=== PATIENT | female | born 1975 | race Caucasian/White ===

== ENCOUNTER → 2017-10-02 | Outpatient (CLI) | payer BC ==
[~2017-10-02] MED LIST: BCP; CALC300T4 PO; HCT25T; LVT.088T; LVT.1T; OMEP20TA7 PO; PRM25T PO
[2017-10-02 13:23] LABS: BASOPHILS % (AUTO) 1 % (0-10); EOSINOPHILS # (AUTO) 0.1 10^3/uL (0.0-0.3); EOSINOPHILS % (AUTO) 2 % (0-10); HEMATOCRIT 27 % (35-52); HEMOGLOBIN 7.6 G/DL (11.5-16.0); LYMPHOCYTES # (AUTO) 1.4 X 10^3 (1.0-4.0); LYMPHOCYTES % (AUTO) 33 % (12-44); MEAN CORPUSCULAR HEMOGLOBIN 19 PG (25-34); MEAN CORPUSCULAR HGB CONC 28 G/DL (32-36); MEAN CORPUSCULAR VOLUME 69 FL (80-99); MEAN PLATELET VOLUME 9.9 FL (7.4-10.4); MONOCYTES # (AUTO) 0.8 X 10^3 (0.0-1.0); MONOCYTES % (AUTO) 18 % (0-12); NEUTROPHILS % (AUTO) 47 % (42-75); PLATELET COUNT 254 10^3/uL (130-400); RED BLOOD COUNT 3.96 10^6/uL (4.35-5.85); RED CELL DISTRIBUTION WIDTH 18.4 % (10.0-14.5); WHITE BLOOD COUNT 4.3 10^3/uL (4.3-11.0)
== END ==
LOC: LAB 12:59
PROVIDERS: ATTEND Family Medicine
DX: E03.9 Hypothyroidism, unspecified (principal); R53.83 Other fatigue
CPT/HCPCS: 36415; 82306; 84443; 85025

== ENCOUNTER 2017-10-03 08:24 | Emergency (ER) | payer BC ==
[2017-10-03] VITALS (10 sets, daily range): BP systolic 103–122; BP diastolic 60–96
[~2017-10-03] VITALS: Ht 160 cm; Wt 63.5 kg
[~2017-10-03 08:24] MED LIST changes: -CALC300T4 PO; -NS IV 1000 ML 1,000 ML ONE; -OMEP20TA7 PO
--- OUTSIDE RECORDS SUMMARY | 2017-10-03 08:29 | XMS REPORT | Continuity of Care Document ---
Author Author [facility] Organization [facility] Address Unknown Phone Unavailable Allergies Active Description Code Type Severity Reaction Onset Reported/Identified Relationship to Patient Clinical Status Yes No Known Drug Allergies [id number] Drug Allergy Unknown N/A 07/24/2007 Medications There is no data. Problems Date Dx Coded Attending Type Code Diagnosis Diagnosed By 01/04/2010 Ot 244.9 HYPOTHYROIDISM NOS 01/04/2010 Ot 256.4 POLYCYSTIC OVARIES 01/04/2010 Ot 272.0 PURE HYPERCHOLESTEROLEM 01/04/2010 Ot 278.01 MORBID OBESITY 01/04/2010 Ot 305.1 TOBACCO USE DISORDER 01/04/2010 Ot V58.69 OTH MED,LT, CURRENT USE 01/04/2010 Ot V85.4 BODY MASS INDEX 40 AND OVER, ADULT 01/21/2014 DARIA MILLIGAN, STEFANO Strickland Ot V57.1 PHYSICAL THERAPY NEC 01/21/2014 STEFANO HUFF MD Ot V58.78 AFTERCARE POST SURGERY MUSCULOSKELETAL S 02/22/2016 Ot 244.9 HYPOTHYROIDISM NOS 02/22/2016 Ot V70.0 ROUTINE MEDICAL EXAM 02/22/2016 Ot 244.9 HYPOTHYROIDISM NOS 02/22/2016 Ot V15.29 PERSONAL HISTORY OF SURGERY TO OTHER ORG 02/22/2016 Ot V70.0 ROUTINE MEDICAL EXAM 02/22/2016 Ot 244.9 HYPOTHYROIDISM NOS 02/22/2016 Ot 793.89 OTH (ABN) FINDINGS ON RADIOLOGICAL EXAMI 02/22/2016 KIERA MILLIGAN, FRANKLIN Smith Ot 724.02 SPINAL STENOSIS, LUMBAR REG, W/OUT NEURO 02/22/2016 DARIA MILLIGAN, STEFANO Strickland Ot 722.10 LUMBAR DISC DISPLACEMENT 02/22/2016 STEFANO HUFF MD Ot V72.63 PRE-PROCEDURAL LABORATORY EXAMINATION 02/28/2016 FRANKLIN QURESHI MD Ot E03.9 HYPOTHYROIDISM, UNSPECIFIED 03/28/2016 FRANKLIN QURESHI MD Ot E03.9 HYPOTHYROIDISM, UNSPECIFIED 05/29/2016 Ot 244.9 HYPOTHYROIDISM NOS 05/29/2016 Ot V70.0 ROUTINE MEDICAL EXAM 05/29/2016 Ot 244.9 HYPOTHYROIDISM NOS 05/29/2016 Ot V15.29 PERSONAL HISTORY OF SURGERY TO OTHER ORG 05/29/2016 Ot V70.0 ROUTINE MEDICAL EXAM 05/29/2016 Ot 244.9 HYPOTHYROIDISM NOS 05/29/2016 Ot 793.89 OTH (ABN) FINDINGS ON RADIOLOGICAL EXAMI 05/29/2016 KIERA MILLIGAN, FRANKLIN Smith Ot 724.02 SPINAL STENOSIS, LUMBAR REG, W/OUT NEURO 05/29/2016 STEFANO HUFF MD Ot 722.10 LUMBAR DISC DISPLACEMENT 05/29/2016 STEFANO HUFF MD Ot V72.63 PRE-PROCEDURAL LABORATORY EXAMINATION 05/29/2016 KIERA MILLIGAN, FRANKLIN Smith Ot E03.9 HYPOTHYROIDISM, UNSPECIFIED 06/18/2016 Ot 244.9 HYPOTHYROIDISM NOS 06/18/2016 Ot V70.0 ROUTINE MEDICAL EXAM 06/18/2016 Ot 244.9 HYPOTHYROIDISM NOS 06/18/2016 Ot V15.29 PERSONAL HISTORY OF SURGERY TO OTHER ORG 06/18/2016 Ot V70.0 ROUTINE MEDICAL EXAM 06/18/2016 Ot 244.9 HYPOTHYROIDISM NOS 06/18/2016 Ot 793.89 OTH (ABN) FINDINGS ON RADIOLOGICAL EXAMI 06/18/2016 FRANKLIN QURESHI MD Ot 724.02 SPINAL STENOSIS, LUMBAR REG, W/OUT NEURO 06/18/2016 STEFANO HUFF MD Ot 722.10 LUMBAR DISC DISPLACEMENT 06/18/2016 STEFANO HUFF MD Ot V72.63 PRE-PROCEDURAL LABORATORY EXAMINATION 06/18/2016 FRANKLIN QURESHI MD Ot E03.9 HYPOTHYROIDISM, UNSPECIFIED 10/18/2016 Ot 244.9 HYPOTHYROIDISM NOS 10/18/2016 Ot V15.29 PERSONAL HISTORY OF SURGERY TO OTHER ORG 10/18/2016 Ot V70.0 ROUTINE MEDICAL EXAM 10/18/2016 Ot 244.9 HYPOTHYROIDISM NOS 10/18/2016 Ot 793.89 OTH (ABN) FINDINGS ON RADIOLOGICAL EXAMI 10/18/2016 FRANKLIN QURESHI MD Ot 724.02 SPINAL STENOSIS, LUMBAR REG, W/OUT NEURO 10/18/2016 STEFANO HUFF MD Ot 722.10 LUMBAR DISC DISPLACEMENT 10/18/2016 STEFANO HUFF MD Ot V72.63 PRE-PROCEDURAL LABORATORY EXAMINATION 10/18/2016 FRANKLIN QURESHI MD Ot E03.9 HYPOTHYROIDISM, UNSPECIFIED 10/18/2016 Ot 244.9 HYPOTHYROIDISM NOS 10/18/2016 Ot V15.29 PERSONAL HISTORY OF SURGERY TO OTHER ORG 10/18/2016 Ot V70.0 ROUTINE MEDICAL EXAM 10/18/2016 Ot 244.9 HYPOTHYROIDISM NOS 10/18/2016 Ot 793.89 OTH (ABN) FINDINGS ON RADIOLOGICAL EXAMI 10/18/2016 KIERA MILLIGAN, FRANKLIN Smith Ot 724.02 SPINAL STENOSIS, LUMBAR REG, W/OUT NEURO 10/18/2016 STEFANO HUFF MD Ot 722.10 LUMBAR DISC DISPLACEMENT 10/18/2016 STEFANO HUFF MD Ot V72.63 PRE-PROCEDURAL LABORATORY EXAMINATION 10/18/2016 FRANKLIN QURESHI MD Ot E03.9 HYPOTHYROIDISM, UNSPECIFIED 03/27/2017 Ot 244.9 HYPOTHYROIDISM NOS 03/27/2017 Ot V15.29 PERSONAL HISTORY OF SURGERY TO OTHER ORG 03/27/2017 Ot V70.0 ROUTINE MEDICAL EXAM 03/27/2017 Ot 244.9 HYPOTHYROIDISM NOS 03/27/2017 Ot 793.89 OTH (ABN) FINDINGS ON RADIOLOGICAL EXAMI 03/27/2017 FRANKLIN QURESHI MD Ot 724.02 SPINAL STENOSIS, LUMBAR REG, W/OUT NEURO 03/27/2017 STEFANO HUFF MD Ot 722.10 LUMBAR DISC DISPLACEMENT 03/27/2017 STEFANO HUFF MD Ot V72.63 PRE-PROCEDURAL LABORATORY EXAMINATION 03/27/2017 FRANKLIN QURESHI MD Ot E03.9 HYPOTHYROIDISM, UNSPECIFIED 10/02/2017 Ot 244.9 HYPOTHYROIDISM NOS 10/02/2017 Ot V15.29 PERSONAL HISTORY OF SURGERY TO OTHER ORG 10/02/2017 Ot V70.0 ROUTINE MEDICAL EXAM 10/02/2017 Ot 244.9 HYPOTHYROIDISM NOS 10/02/2017 Ot 793.89 OTH (ABN) FINDINGS ON RADIOLOGICAL EXAMI 10/02/2017 FRANKLIN QURESHI MD Ot 724.02 SPINAL STENOSIS, LUMBAR REG, W/OUT NEURO 10/02/2017 STEFANO HUFF MD Ot 722.10 LUMBAR DISC DISPLACEMENT 10/02/2017 STEFANO HUFF MD Ot V72.63 PRE-PROCEDURAL LABORATORY EXAMINATION 10/02/2017 FRANKLIN QURESHI MD Ot E03.9 HYPOTHYROIDISM, UNSPECIFIED Procedures There is no data. Results Test Result Range Complete blood count (CBC) with automated white blood cell (WBC) differential - 10/02/17 13:18 Blood leukocytes automated count (number/volume) 4.3 10*3/uL 4.3-11.0 Blood erythrocytes automated count (number/volume) 3.96 10*6/uL 4.35-5.85 Venous blood hemoglobin measurement (mass/volume) 7.6 g/dL 11.5-16.0 Blood hematocrit (volume fraction) 27 % 35-52 Automated erythrocyte mean corpuscular volume 69 [foz_us] 80-99 Automated erythrocyte mean corpuscular hemoglobin (mass per erythrocyte) 19 pg 25-34 Automated erythrocyte mean corpuscular hemoglobin concentration measurement ( mass/volume) 28 g/dL 32-36 Automated erythrocyte distribution width ratio 18.4 % 10.0-14.5 Automated blood platelet count (count/volume) 254 10*3/uL 130-400 Automated blood platelet mean volume measurement 9.9 [foz_us] 7.4-10.4 Automated blood neutrophils/100 leukocytes 47 % 42-75 Automated blood lymphocytes/100 leukocytes 33 % 12-44 Blood monocytes/100 leukocytes 18 % 0-12 Automated blood eosinophils/100 leukocytes 2 % 0-10 Automated blood basophils/100 leukocytes 1 % 0-10 Blood neutrophils automated count (number/volume) 2.0 10*3 1.8-7.8 Blood lymphocytes automated count (number/volume) 1.4 10*3 1.0-4.0 Blood monocytes automated count (number/volume) 0.8 10*3 0.0-1.0 Automated eosinophil count 0.1 10*3/uL 0.0-0.3 Automated blood basophil count (count/volume) 0.0 10*3/uL 0.0-0.1 Serum or plasma thyrotropin measurement by detection limit <=0.05 miu/l (units/ volume) - 10/02/17 13:18 Serum or plasma thyrotropin measurement by detection limit <=0.05 miu/l (units/ volume) 0.37 u[iU]/mL 0.35-4.94 25-hydroxyvitamin D measurement - 10/02/17 13:18 25-hydroxy vitamin D measurement 25 % 30-100 Encounters ACCT No. Visit Date/Time Discharge Status Pt. Type Provider Facility Loc./Unit Complaint [id number] 02/22/2016 09:20:00 02/22/2016 23:59:59 CLS Outpatient FRANKLIN QURESHI MD [facility] LAB HYPOTHYROID [id number] 03/09/2015 08:58:00 03/09/2015 23:59:59 CLS Outpatient ROLA SUAREZ APRN [facility] QUICK [id number] 01/05/2014 15:00:00 01/21/2014 12:28:00 DIS Outpatient STEFANO HUFF MD [facility] REHAB R L4-5 MICRODISCECTOMY [id number] 01/11/2014 13:52:00 01/11/2014 23:59:59 CLS Outpatient [id number] 11/10/2013 08:50:00 11/10/2013 23:59:59 CLS Outpatient STEFANO HUFF MD [facility] LAB PRE OP HNP LBP RADICULITIS [id number] 10/14/2013 15:03:00 10/14/2013 23:59:59 CLS Outpatient FRANKLIN QURESHI MD [facility] RAD LUMBAR LOW BACK PAIN [id number] 10/02/2017 12:59:00 ACT Outpatient TIMI CHAPPELL MD [facility] LAB E03.8 R53.83 [id number] 12/15/2012 10:50:00 Document Registration [id number] 11/09/2012 15:15:00 Document Registration [id number] 05/05/2012 08:07:00 Document Registration [id number] 02/21/2011 08:16:00 Document Registration [id number] 01/03/2010 05:42:00 Document Registration
[2017-10-03] MEDS ORDERED: CALC300T4 PO (08:49)
[2017-10-03] MEDS ORDERED: OMEP20TA7 PO (08:49)
[2017-10-03 09:39] LABS: BASOPHILS % (AUTO) 1 % (0-10); EOSINOPHILS # (AUTO) 0.1 10^3/uL (0.0-0.3); EOSINOPHILS % (AUTO) 3 % (0-10); HEMATOCRIT 26 % (35-52); HEMOGLOBIN 7.2 G/DL (11.5-16.0); LYMPHOCYTES # (AUTO) 1.1 X 10^3 (1.0-4.0); LYMPHOCYTES % (AUTO) 28 % (12-44); MEAN CORPUSCULAR HEMOGLOBIN 19 PG (25-34); MEAN CORPUSCULAR HGB CONC 28 G/DL (32-36); MEAN CORPUSCULAR VOLUME 68 FL (80-99); MEAN PLATELET VOLUME 10.8 FL (7.4-10.4); MONOCYTES # (AUTO) 0.6 X 10^3 (0.0-1.0); MONOCYTES % (AUTO) 16 % (0-12); NEUTROPHILS % (AUTO) 53 % (42-75); PLATELET COUNT 225 10^3/uL (130-400); RED BLOOD COUNT 3.75 10^6/uL (4.35-5.85); RED CELL DISTRIBUTION WIDTH 18.3 % (10.0-14.5); WHITE BLOOD COUNT 3.8 10^3/uL (4.3-11.0)
[2017-10-03] MEDS ORDERED: NS IV 1000 ML 1,000 ML IV SCH (09:45)
--- NOTE | 2017-10-03 10:30 | ED General ---
General Chief Complaint: Dizziness/Syncope Stated Complaint: DIZZY,WEAK,SOA Nursing Triage Note: ARRIVED VIA AMB WITH DAD. STATES SHE IS FEELING VERY WEAK AND DIZZY. HAD BLOOD DRAWN YESTERDAY AND HER HMG WAS 7. STATES SHE HAS HAD A COUGH AND FEELS SOA. Nursing Sepsis Screen: No Definite Risk Source of Information: Patient Exam Limitations: No Limitations History of Present Illness Date Seen by Provider: Oct 03, 2017 Time Seen by Provider: 10:25 Initial Comments The patient is a 41-year-old white female known to me for some years. She saw Dr. Eliezer Zhang yesterday and blood work was done which showed that she had a hemoglobin of 7.6. He was to arrange some outpatient infusions today but she presented here with complaints of feeling weak and woozy and as if she were about to pass out. She reports no past history of anemia. She states her menstrual periods have been normal until the past month and this month she has had some limited spotting. There has been no hematochezia melena or hematemesis Severity: Mild, Moderate Allergies and Home Medications Allergies Coded Allergies: No Known Drug Allergies (Verified Allergy, Unknown, 07/24/07) Home Medications Calcium Carbonate 300 Mg Tab.chew, 300 MG PO, (Reported) Levothyroxine Sodium 100 Mcg Tablet, (Reported) Omeprazole 20 Mg Tablet.dr, 20 MG PO, (Reported) Constitutional: see HPI EENTM: no symptoms reported Respiratory: no symptoms reported Cardiovascular: no symptoms reported Musculoskeletal: muscle weakness Skin: no symptoms reported Psychiatric/Neurological: No Symptoms Reported Hematologic/Lymphatic: No Symptoms Reported Immunological/Allergic: no symptoms reported Past Tlbhper-Dstwbe-Gutcdw Hx Patient Social History Alcohol Use: Denies Use Recreational Drug Use: No Smoking Status: Current Everyday Smoker Recent Foreign Travel: No Contact w/Someone Who Travel: No Recent Infectious Disease Expo: No Recent Hopitalizations: Yes Surgeries History of Surgeries: Yes (GASTRIC SLEEVE) Respiratory History of Respiratory Disorde: No Cardiovascular History of Cardiac Disorders: No Neurological History of Neurological Disord: No Reproductive System Hx Reproductive Disorders: Yes (PCOS) Sexually Transmitted Disease: No Genitourinary History of Genitourinary Disor: No Gastrointestinal History of Gastrointestinal Di: Yes Gastrointestinal Disorders: Gastroesophageal Reflux Musculoskeletal History of Musculoskeletal Dis: No Endocrine History of Endocrine Disorders: Yes Endocrine Disorders: Hypothyroidsim HEENT History of HEENT Disorders: No Cancer History of Cancer: No Psychosocial History of Psychiatric Problem: No Blood Transfusions History of Blood Disorders: No Physical Exam Vital Signs Vital Sign - Last 12Hours 10/03/17 08:25 Temp 96.9 Pulse 79 Resp 18 B/P (MAP) 131/93 (106) Pulse Ox 100 Capillary Refill : Less Than 3 Seconds General Appearance: Mild Distress Eyes: Bilateral Eye Normal Inspection HEENT: Normal ENT Inspection Neck: Normal Inspection Respiratory: Chest Non Tender, Lungs Clear, Normal Breath Sounds, No Accessory Muscle Use, No Respiratory Distress Cardiovascular: Regular Rate, Rhythm Gastrointestinal: Normal Bowel Sounds, No Organomegaly, No Pulsatile Mass, Non Tender, Soft Progress/Results/Core Measures Suspected Sepsis Recent Fever Within 48 Hours: No Infection Criteria Present: None New/Unexplained Altered Menta: No Sepsis Screen: No Definite Risk Sepsis Diagnosis: SIRS Temperature:96.9 Pulse: 79 Respiratory Rate: 18 Laboratory Tests 10/03/17 08:38: White Blood Count 3.8L Blood Pressure 131 /93 Mean: 106 Laboratory Tests 10/03/17 08:38: Platelet Count 225 Results/Orders Lab Results Laboratory Tests Test 10/03/17 08:38 Range/Units White Blood Count 3.8 L 4.3-11.0 10^3/uL Red Blood Count 3.75 L 4.35-5.85 10^6/uL Hemoglobin 7.2 L 11.5-16.0 G/DL Hematocrit 26 L 35-52 % Mean Corpuscular Volume 68 L 80-99 FL Mean Corpuscular Hemoglobin 19 L 25-34 PG Mean Corpuscular Hemoglobin Concent 28 L 32-36 G/DL Red Cell Distribution Width 18.3 H 10.0-14.5 % Platelet Count 225 130-400 10^3/uL Mean Platelet Volume 10.8 H 7.4-10.4 FL Neutrophils (%) (Auto) 53 42-75 % Lymphocytes (%) (Auto) 28 12-44 % Monocytes (%) (Auto) 16 H 0-12 % Eosinophils (%) (Auto) 3 0-10 % Basophils (%) (Auto) 1 0-10 % Neutrophils # (Auto) 2.0 1.8-7.8 X 10^3 Lymphocytes # (Auto) 1.1 1.0-4.0 X 10^3 Monocytes # (Auto) 0.6 0.0-1.0 X 10^3 Eosinophils # (Auto) 0.1 0.0-0.3 10^3/uL Basophils # (Auto) 0.0 0.0-0.1 10^3/uL My Orders Orders - FLAQUITO DUGAN MD Red Cells Leukocytes Reduced (10/03/17 08:53) Type And Screen (10/03/17 08:53) Ns Iv 1000 Ml (Sodium Chloride 0.9%) (10/03/17 09:45) Cbc With Automated Diff (10/03/17 09:34) Anemia Analyzer (10/03/17 10:21) Vital Signs/I&O Vital Sign - Last 12Hours 10/03/17 08:25 Temp 96.9 Pulse 79 Resp 18 B/P (MAP) 131/93 (106) Pulse Ox 100 Capillary Refill : Less Than 3 Seconds Blood Pressure Mean: 106 Departure Impression Impression: Primary Impression: symptomatic anemia Disposition: 01 HOME, SELF-CARE Condition: Stable/Unchanged Departure-Patient Inst. Decision time for Depature: 10:29 Referrals: ELIEZER ZHANG MD (PCP/Family) Primary Care Physician Add. Discharge Instructions: All discharge instructions reviewed with patient and/or family. Voiced understanding. Present to healthcare administration intern for 2 units of packed red blood cells. I have spoken to Dr. Eliezer Zhang and he will expect to for a blood counts early next week and to arrange any necessary additional workup FLAQUITO DUGAN MD Oct 03, 2017 10:30
[2017-10-03 10:50] LABS: HEMATOCRIT 26 % (35-52); HEMOGLOBIN 7.2 G/DL (11.5-16.0); MEAN CORPUSCULAR HEMOGLOBIN 19 PG (25-34); MEAN CORPUSCULAR VOLUME 68 FL (80-99); RED BLOOD COUNT 3.75 10^6/uL (4.35-5.85); WHITE BLOOD COUNT 3.8 10^3/uL (4.3-11.0)
[2017-10-03 10:51] LABS: BASOPHILS % (AUTO) 1 % (0-10); EOSINOPHILS # (AUTO) 0.1 10^3/uL (0.0-0.3); EOSINOPHILS % (AUTO) 3 % (0-10); LYMPHOCYTES # (AUTO) 1.1 X 10^3 (1.0-4.0); LYMPHOCYTES % (AUTO) 28 % (12-44); MEAN CORPUSCULAR HGB CONC 28 G/DL (32-36); MEAN PLATELET VOLUME 10.8 FL (7.4-10.4); MONOCYTES # (AUTO) 0.6 X 10^3 (0.0-1.0); MONOCYTES % (AUTO) 16 % (0-12); NEUTROPHILS % (AUTO) 53 % (42-75); PLATELET COUNT 225 10^3/uL (130-400); RED CELL DISTRIBUTION WIDTH 18.3 % (10.0-14.5)
[2017-10-03 10:54] LABS: ABSOLUTE RETIC # 22 10e9/L (24-90); RETICULOCYTE % 0.58 % (0.50-2.40)
[2017-10-03 11:49] LABS: ANISOCYTOSIS SLIGHT; EOSINOPHILS % (MANUAL) 3 %; HYPOCHROMASIA MODERATE; LYMPHOCYTES % (MANUAL) 37 %; MICROCYTOSIS MODERATE; MONOCYTES % (MANUAL) 14 %; NEUTROPHILS % (MANUAL) 46 %; POIKILOCYTOSIS SLIGHT; ROULEAUX SLIGHT
== END 2017-10-03 10:45 | disposition home or self-care (01) ==
LOC: EDUNIT# 08:24 → ER 08:26
DX: D64.9 Anemia, unspecified (principal); K21.9 Gastro-esophageal reflux disease without esophagitis; F17.200 Nicotine dependence, unspecified, uncomplicated; E03.9 Hypothyroidism, unspecified; Z98.84 Bariatric surgery status
CPT/HCPCS: 36415; 82728; 85007; 85025; 85027; 85045; 86850; 86900; 86901; 86920; 96360

== ENCOUNTER → 2017-10-03 | Outpatient (CLI) | payer BC ==
[~2017-10-03] VITALS: Ht 160 cm; Wt 63.5 kg
[~2017-10-03] MED LIST changes: +NS IV 1000 ML 1,000 ML ONE
[2017-10-03 11:29] VITALS: BP 127/55
[2017-10-03 13:52] LABS: HEMOGLOBIN 8.2 G/DL (11.5-16.0)
[2017-10-03 16:02] LABS: HEMOGLOBIN 9.8 G/DL (11.5-16.0)
--- NOTE | 2017-10-06 14:03 | Physician Query-Final Dx ---
Clinic Account Progress/Dx Physician Query: Please give a diagnosis for the patients blood transfusion thank you Date of Service Oct 03, 2017 at 11:02 JOSE NAVARRO Oct 06, 2017 14:03
--- NOTE | 2017-10-22 14:24 | Short Stay Summary-Hospitalist ---
Short Stay Diagnosis D/C Date Symptomatic anemia etiology unknown FLAQUITO DUGAN MD Oct 22, 2017 14:24
== END ==
LOC: SDC 11:02
PROVIDERS: ATTEND Internal Medicine
DX: D64.9 Anemia, unspecified (principal)
CPT/HCPCS: 36415; 36430; 85014; 85018

== ENCOUNTER → 2017-11-11 | Outpatient (CLI) | payer BC ==
[~2017-11-11] MED LIST changes: +CALC300T4 PO; +OMEP20TA7 PO
[2017-11-11 13:12] LABS: BASOPHILS # (AUTO) 0.1 10^3/uL (0.0-0.1); BASOPHILS % (AUTO) 1 % (0-10); EOSINOPHILS # (AUTO) 0.3 10^3/uL (0.0-0.3); EOSINOPHILS % (AUTO) 3 % (0-10); HEMATOCRIT 34 % (35-52); HEMOGLOBIN 10.6 G/DL (11.5-16.0); LYMPHOCYTES % (AUTO) 20 % (12-44); MEAN CORPUSCULAR HEMOGLOBIN 24 PG (25-34); MEAN CORPUSCULAR HGB CONC 31 G/DL (32-36); MEAN CORPUSCULAR VOLUME 77 FL (80-99); MEAN PLATELET VOLUME 10.7 FL (7.4-10.4); MONOCYTES % (AUTO) 10 % (0-12); NEUTROPHILS # (AUTO) 6.4 X 10^3 (1.8-7.8); NEUTROPHILS % (AUTO) 66 % (42-75); PLATELET COUNT 295 10^3/uL (130-400); RED BLOOD COUNT 4.43 10^6/uL (4.35-5.85); RED CELL DISTRIBUTION WIDTH 22.8 % (10.0-14.5); WHITE BLOOD COUNT 9.7 10^3/uL (4.3-11.0)
== END ==
LOC: LAB 12:57
PROVIDERS: ATTEND Family Medicine
DX: D50.9 Iron deficiency anemia, unspecified (principal)
CPT/HCPCS: 36415; 85025

== ENCOUNTER → 2017-12-23 | Outpatient (CLI) | payer BC ==
--- NOTE | 2017-12-23 13:00 | Diagnostic Imaging Report ---
INDICATION: Routine screening. Comparison is made with prior study from 12/15/2012. The current study was also evaluated with a Computer Aided Detection (CAD) system. FINDINGS: Both breasts are heterogeneously dense, limiting the sensitivity of mammography. There are benign calcifications bilaterally. There is a focal density in the left breast mid depth just lateral to the nipple line. No corresponding density on the MLO view is seen. Axillae are unremarkable. IMPRESSION: Left breast density. Additional views including spot compression and rolled CC views are recommended for further evaluation. ACR BI-RADS Category 0: Incomplete. (Needs additional imaging evaluation). Result letter will be mailed to the patient. Note: At least 10% of breast cancer is not imaged by mammography. Dictated by: Dictated on workstation # [id number]
== END ==
LOC: RAD 08:27
PROVIDERS: ATTEND Obstetrics & Gynecology
DX: Z12.31 Encounter for screening mammogram for malignant neoplasm of breast (principal)
CPT/HCPCS: 77067

== ENCOUNTER → 2018-02-20 | Outpatient (CLI) | payer BC ==
[2018-02-20 15:33] LABS: BASOPHILS # (AUTO) 0.1 10^3/uL (0.0-0.1); BASOPHILS % (AUTO) 1 % (0-10); EOSINOPHILS # (AUTO) 0.3 10^3/uL (0.0-0.3); EOSINOPHILS % (AUTO) 3 % (0-10); HEMATOCRIT 33 % (35-52); HEMOGLOBIN 10.3 G/DL (11.5-16.0); LYMPHOCYTES % (AUTO) 23 % (12-44); MEAN CORPUSCULAR HEMOGLOBIN 24 PG (25-34); MEAN CORPUSCULAR HGB CONC 31 G/DL (32-36); MEAN CORPUSCULAR VOLUME 78 FL (80-99); MONOCYTES # (AUTO) 0.9 X 10^3 (0.0-1.0); MONOCYTES % (AUTO) 10 % (0-12); NEUTROPHILS # (AUTO) 5.6 X 10^3 (1.8-7.8); NEUTROPHILS % (AUTO) 63 % (42-75); PLATELET COUNT 343 10^3/uL (130-400); RED BLOOD COUNT 4.24 10^6/uL (4.35-5.85); RED CELL DISTRIBUTION WIDTH 16.3 % (10.0-14.5); WHITE BLOOD COUNT 8.9 10^3/uL (4.3-11.0)
== END ==
LOC: LAB 15:11
PROVIDERS: ATTEND Family Medicine
DX: D50.9 Iron deficiency anemia, unspecified (principal)
CPT/HCPCS: 36415; 83540; 85025

== ENCOUNTER → 2018-03-04 | Outpatient (CLI) | payer BC ==
[~2018-03-04] VITALS: Ht 160 cm; Wt 63.5 kg
[~2018-03-04] MED LIST changes: +IRON SUCROSE 200 MG/10 ML (VENOFER) VIAL IV NR
[2018-03-04 13:33] VITALS: BP 109/67
== END ==
LOC: SDC 12:55
PROVIDERS: ATTEND Family Medicine
DX: D50.9 Iron deficiency anemia, unspecified (principal)
CPT/HCPCS: 96365

== ENCOUNTER 2018-03-19 08:26 | Outpatient (CLI) | payer BC ==
[~2018-03-19] VITALS: Ht 160 cm; Wt 65.8 kg
[~2018-03-19 08:26] MED LIST changes: -IRON SUCROSE 200 MG/10 ML (VENOFER) VIAL IV NR
[2018-03-19] MEDS ORDERED: LEVO100T7 PO (12:54)
[2018-03-20] MEDS ORDERED: DOCU100C37 PO (12:57)
[2018-03-20] MEDS ORDERED: OXYC-471 PO (12:57)
[2018-03-20] MEDS ORDERED: IBUP-1780 PO (12:57)
== END 2018-03-19 13:08 ==
LOC: PREOP 08:26
PROVIDERS: ATTEND Obstetrics & Gynecology
DX: Z01.818 Encounter for other preprocedural examination (principal)

== ENCOUNTER 2018-03-20 12:25 | Day surgery (SDC) | payer BC, OTHER ==
[~2018-03-20] VITALS: Ht 160 cm; Wt 65.8 kg
[~2018-03-20 12:25] MED LIST changes: +BUP/EPI 0.5% 1:200,000 (SENSORCAINE) 30 ML VIAL ONE; +LEVO100T7 PO
[2018-03-20 12:30] VITALS: BP 126/73
[2018-03-20] MEDS ORDERED: ONDANSETRON 4 MG/2 ML (SDV) Z0FRAN ONE ×2 (12:34→12:52)
[2018-03-20] MEDS ORDERED: SCOPOLAMINE 1.5 MG (TRANSDERM-SCOP) PATCH ONE (12:34)
[2018-03-20] MEDS ORDERED: FAMOTIDINE 20MG/2ML IV (PEPCID) ONE (12:36)
[2018-03-20] MEDS: LACTATED RINGERS 1,000 ML IV PRN ×2 (12:40→13:57)
[2018-03-20] MEDS ORDERED: SEVOFLURANE (ULTANE) 15 ML INHAL SOLN ONE ×4 (12:43→14:36)
[2018-03-20] MEDS ORDERED: LACTATED RINGERS 1,000 ML IV ONE (12:43)
[2018-03-20] MEDS ORDERED: LIDOCAINE PF 2% 5 ML (XYLOCAINE) VIAL ONE (12:43)
[2018-03-20] MEDS ORDERED: proPOfol 200 MG/20 ML (DIPRIVAN) VIAL IV ONE (12:43)
[2018-03-20] MEDS ORDERED: MIDAZOLAM 2 MG/2 ML (VERSED) VIAL ONE (12:44)
[2018-03-20] MEDS ORDERED: fentaNYL INJECTION 100 MCG/2 ML AMP ONE ×2 (12:44→14:33)
[2018-03-20] MEDS ORDERED: ceFAZolin INJECTION 1,000 MG in NS (IVPB) 50 ML IV ONE (12:45)
[2018-03-20] MEDS ORDERED: SCOPOLAMINE 1.5 MG (TRANSDERM-SCOP) PATCH TOP ONE (12:45)
[2018-03-20] MEDS ORDERED: ONDANSETRON 4 MG/2 ML (SDV) Z0FRAN IV ONE (12:45)
[2018-03-20] MEDS ORDERED: FAMOTIDINE 20MG/2ML IV (PEPCID) IV ONE (12:45)
--- NOTE | 2018-03-20 12:50 | Progress Note-Pre Operative ---
Pre-Operative Progress Note H&P Reviewed The H&P was reviewed, patient examined and no changes noted. Date Seen by Provider: Mar 20, 2018 Time Seen by Provider: 12:50 Date H&P Reviewed: Mar 20, 2018 Time H&P Reviewed: 12:50 Pre-Operative Diagnosis: Dysfunctional uterine bleeding/menorrhagia JESUS REGALADO MD Mar 20, 2018 12:50 pm
--- NOTE | 2018-03-20 12:51 | Progress Note-Post Operative ---
Post-Operative Progess Note Surgeon (s)/Electronic Tech (s) Surgeon JESUS REGALADO MD Electronic Tech: Katey Osorio Pre-Operative Diagnosis Dysfunctional uterine bleeding/menorrhagia Post-Operative Diagnosis Same with pathology pending Procedure & Operative Findings Date of Procedure 03/20/18 Procedure Performed/Findings Total laparoscopic hysterectomy with bilateral salpingectomy Anesthesia Type GETA Estimated Blood Loss Estimated blood loss (mL): Minimal Specimens/Packing Specimens Removed Uterus and fallopian tubes Packing: None JESUS REGALADO MD Mar 20, 2018 12:51
[2018-03-20] MEDS ORDERED: DEXAMETHASONE 10 MG/ML (DECADRON) 1 ML VIAL ONE (12:52)
[2018-03-20 12:56] LABS: BASOPHILS # (AUTO) 0.1 10^3/uL (0.0-0.1); BASOPHILS % (AUTO) 1 % (0-10); EOSINOPHILS # (AUTO) 0.2 10^3/uL (0.0-0.3); EOSINOPHILS % (AUTO) 2 % (0-10); HEMATOCRIT 40 % (35-52); HEMOGLOBIN 12.4 G/DL (11.5-16.0); LYMPHOCYTES # (AUTO) 1.6 X 10^3 (1.0-4.0); LYMPHOCYTES % (AUTO) 25 % (12-44); MEAN CORPUSCULAR HEMOGLOBIN 25 PG (25-34); MEAN CORPUSCULAR HGB CONC 31 G/DL (32-36); MEAN CORPUSCULAR VOLUME 79 FL (80-99); MEAN PLATELET VOLUME 11.5 FL (7.4-10.4); MONOCYTES # (AUTO) 0.7 X 10^3 (0.0-1.0); MONOCYTES % (AUTO) 10 % (0-12); NEUTROPHILS % (AUTO) 62 % (42-75); PLATELET COUNT 296 10^3/uL (130-400); RED BLOOD COUNT 5.01 10^6/uL (4.35-5.85); RED CELL DISTRIBUTION WIDTH 19.7 % (10.0-14.5); WHITE BLOOD COUNT 6.5 10^3/uL (4.3-11.0)
--- NOTE | 2018-03-20 12:56 | Discharge Instructions ---
Discharge Instructions Discharge Medications New, Converted or Re-Newed RX: RX on Chart Patient Instructions Patient Instructions: As directed Return to The Hospital For: As directed Activity & Diet Discharge Diet: No Restrictions Activity as Tolerated: No Orders-Post D/C & Referrals Follow Up Appt: Return to clinic on Friday, March 23, 2018 at 930 a.m. for staple removal Call to make follow up appt. for patient in 4 weeks. Activity: Rest for 24 hours, than as tolerated. Wound Care: May remove Band-Aid tomorrow. Replace as desired. Keep incisions clean and dry. Wash daily with soap and water. Please call in RX to patient pharmacy. Diet: As tolerated-Clear Liquids only if nauseated. Tomorrow, may shower or tub bathe as desired. No driving for 24 hours, no alcoholic beverages for 24 hours, and nothing per vagina (no tampons, douching, or intercourse) for 8 weeks. Patient to return to the clinic as soon as possible for: Temperature greater than 101F, Severe Pain, Foul discharge from incision or vagina, Excessive Bleeding (more than a period). JESUS REGALADO MD Mar 20, 2018 12:55 pm
[2018-03-20] MEDS ORDERED: DOCU100C37 PO (12:57)
[2018-03-20] MEDS ORDERED: OXYC-471 PO (12:57)
[2018-03-20] MEDS ORDERED: IBUP-1780 PO (12:57)
[2018-03-20] MEDS ORDERED: WATER (STERILE) FOR INJ 10 ML BTL INJ ONE (13:00)
[2018-03-20] MEDS ORDERED: MEPERIDINE (DEMEROL) INJ 100 MG/ML IM PRN (13:00)
[2018-03-20] MEDS ORDERED: KETOROLAC 30 MG/ML VIAL IVP SCH (13:00)
[2018-03-20] MEDS ORDERED: ONDANSETRON 4 MG/2 ML (SDV) Z0FRAN IVP PRN ×2 (13:00→15:00)
[2018-03-20] MEDS ORDERED: PROMETHAZINE INJ 25 MG/ML (PHENERGAN) AMP IM PRN (13:00)
[2018-03-20] MEDS ORDERED: KETOROLAC 30 MG/ML VIAL ONE (13:19)
[2018-03-20] MEDS ORDERED: ROCURONIUM 10 MG/ML 5 ML SYRINGE IV ONE (14:06)
[2018-03-20] MEDS ORDERED: NEOSTIGMINE 1 MG/ML 5 ML SYRINGE ONE (14:31)
[2018-03-20] MEDS ORDERED: GLYCOPYRROLATE 0.2 MG/ML (ROBINUL) 2 ML VIAL ONE (14:31)
[2018-03-20] MEDS ORDERED: morphine INJ 10 MG/ML 1ML (SYR OR VIAL) ONE (14:50)
[2018-03-20] MEDS: morphine INJ 10 MG/ML 1ML (SYR OR VIAL) IVP PRN ×2 (14:58→15:05)
[2018-03-20] MEDS ORDERED: HYDROmorphone 1 MG/ML (DILAUDID) 1 ML SYRINGE IV PRN (15:00)
--- NOTE | 2018-03-20 15:21 | Anesthesia-General Post-Op ---
General Patient Condition Mental Status/LOC: Same as Preop Cardiovascular: Satisfactory Nausea/Vomiting: Absent Respiratory: Satisfactory Pain: Controlled Complications: Absent Post Op Complications Complications None Follow Up Care/Instructions Patient Instructions None needed. Anesthesia/Patient Condition Patient Condition Patient is doing well, no complaints, stable vital signs, no apparent adverse anesthesia problems. No complications reported per nursing. DANITZA PLAZA CRNA Mar 20, 2018 15:21
[2018-03-20] MEDS ORDERED: PROMETHAZINE INJ 25 MG/ML (PHENERGAN) AMP ONE (15:51)
[2018-03-20] MEDS ORDERED: MEPERIDINE (DEMEROL) INJ 100 MG/ML ONE (15:51)
[2018-03-20 16:00] VITALS: BP 119/78
[2018-03-20 17:25] VITALS: BP 120/75
[2018-03-20] MEDS: D5 LR IV SOLUTION 1,000 ML IV SCH (18:15)
[2018-03-20 20:00] VITALS: BP 107/67
[2018-03-20] MEDS: KETOROLAC 30 MG/ML VIAL IVP SCH (20:56)
--- NOTE | 2018-03-20 21:14 | Progress Note-Standard ---
Standard Progress Note Progress Notes/Assess & Plan Date Seen by Provider: Mar 20, 2018 Time Seen by Provider: 21:13 Progress/Assessment & Plan Patient is without complaint. She has good pain control. She is ambulating and tolerating oral intake. Vital signs are stable. Patient is afebrile. Vital Signs Date Time Temp Pulse Resp B/P (MAP) Pulse Ox O2 Delivery O2 Flow Rate FiO2 03/20/18 20:00 98.7 58 16 107/67 (80) 100 Room Air 03/20/18 17:25 98.4 61 16 120/75 (90) Room Air 03/20/18 16:00 98.0 93 16 119/78 (92) 97 Room Air 03/20/18 12:30 99.5 68 18 126/73 (90) 100 Physical exam is deferred Assessment and plan status post laparoscopic hysterectomy and bilateral salpingectomies doing well. Plan is for observation tonight and discharge home tomorrow JESUS REGALADO MD Mar 20, 2018 9:14 pm
[2018-03-20] MEDS: oxyCODONE/APAP 5/325MG (PERCOCET 5) TABLET PO PRN (22:41)
--- NOTE | 2018-03-20 23:16 | OPERATIVE REPORT ---
DATE OF SERVICE: CONTINUATION I had gotten to the point where I retired to the da Nayana column. the da Nayana column using the vessel sealer on the right and a bipolar fenestrated grasper on the left, the pelvis was first examined. Both ovaries were normal. There were several benign follicles in the left ovary. Both fallopian tubes looked normal. There was some endometriosis implants in the cul-de-sac. The appendix was identified. It was a normal vermiform appendix. The adhesion to the anterior abdominal wall was grasped with the bipolar fenestrated grasper and cauterized near its attachment and then that tissue allowing the omentum to spill up out of the pelvis. The uterus was somewhat mottled in appearance just with adenomyosis. Decision was made to go ahead with the intended procedure being hysterectomy with bilateral salpingectomies. The right fallopian tube was grasped and elevated. The mesosalpinx was clamped, cauterized and divided the fallopian tube from its attachments over the ovary at the utero-ovarian pedicle. The vessel sealer was used to clamp, cauterize and divide that tissues salvaging the right ovary and then continuing the dissection across the broad ligaments and the round ligament and down on the cardinal ligament in preparation for the hysterectomy. Same procedure was performed on the left allowing for conservation of both ovaries and removed both fallopian tubes. The anterior lower uterine segment peritoneum was now divided replacing the vessel sealer with a monopolar shear. The peritoneum was divided. The bladder was carefully dissected down off the lower uterine segment. Colpotomy incision was started at 12 o'clock position and a colpotomy incision was continued circumferentially until the entire colpotomy ring was exposed. This allowed the uterus to be extracted through the vagina with the fallopian tube still attached. Two sutures of V-Loc barbed suture were used to close the vaginal cuff starting first on the right angle taking care to include the pedicles of the uterine vessels in that closure to ensure hemostasis. The vaginal cuff was reapproximated; the bladder peritoneum was brought back down on to the closed vaginal cuff with the last couple of stitches on the right. The same procedure was performed on the left, but the suture was used to attach the left ovary up to the round ligament pedicle to elevate it up out of the pelvis. Good hemostasis was achieved. There was a small amount of blood in the cul-de-sac after the vaginal cuff was completely closed. This was not enough to be of concern and it was left in situ. The needle production truck driver that had been used to close the vaginal cuff was replaced with a monopolar shear. The endometriosis implants in the cul-de-sac were touched with electrocautery to destroy them. Several of the cysts on the left ovary touched with electrocautery to fenestrate them and allowed the fluid to be drained out allowing this cyst to resolve more quickly. Sponge and needle counts were correct at this point. Estimated blood loss was minimal. The patient tolerated the procedure. At this point, the laparoscopic portion of the procedure was halted. The operative instruments were removed under direct vision. No bleeding was noted inside. The operative ports were removed. There was no bleeding at those sites. The skin incisions were stapled after closing the fascia at the supraumbilical incision with [id number] suture of 2-0 Vicryl. Speculum was replaced in the vagina. The vaginal cuff was examined and found completely hemostatic and completely reapproximated. Again, sponge and needle counts were correct. Estimated blood loss was minimal. The patient tolerated the procedure well and was uneventfully awakened from her general anesthesia and transferred to the recovery room in stable condition with plans for discharge home after 24-hour observation. Job ID: [id number] DocumentID: [id number] Dictated Date: 03/20/2018 14:41:24 Sand Plant Attendant Date: 03/20/2018 23:15:57 Dictated By: JESUS REGALADO MD
--- NOTE | 2018-03-20 23:21 | OPERATIVE REPORT ---
DATE OF SERVICE: 03/20/2018 PREOPERATIVE DIAGNOSES: Dysfunctional uterine bleeding and intrauterine mass. POSTOPERATIVE DIAGNOSES: Dysfunctional uterine bleeding and intrauterine mass with endometriosis. OPERATIVE PROCEDURE: Total laparoscopic hysterectomy with bilateral salpingectomy and aspiration of left ovarian cyst. OPERATIVE DESCRIPTION: With the patient in the supine position under satisfactory general anesthesia, she was repositioned in dorsal lithotomy position in the [facility] and prepped and draped in the usual fashion for abdominal and vaginal surgery. Urinary bladder was drained via Owlf catheter to dependent drainage. Weighted speculum was placed in posterior fornix of vagina, cervix exposed and grasped anteriorly with single tooth tenaculum. Uterus was sounded to 10.5 cm with uterine sound. The cervix was then serially dilated with Travon dilators to accommodate a ROBERTA II manipulator, which was placed using a 6 x 8 cm uterine probe and a 25 mm colpotomy ring. Sutures of #1 Vicryl were placed at 3 and 9 o'clock position of the cervix to affix the uterus to the manipulator. The patient was brought in low dorsal lithotomy position. A 12 mm incision made approximately 4 cm superior to the umbilicus. Veress needle was placed through that incision. Correct placement was confirmed with water drop test. Care was taken to ensure that the port placements were well away from the patient's bariatric surgery port. With the Veress needle placed, correct placement confirmed with water drop test. The abdomen was insufflated with 2.4 liters of carbon dioxide. Then, the Veress needle was removed. A 12 mm Optiview laparoscopic port was placed. The patient's bariatric tubing was seen in the peritoneal cavity. It was well away from the areas of intended port placement. The patient's subcutaneous port was in the right upper quadrant and we placed an 8 mm incision and port at the border of the right and left upper and lower quadrants to align equal to the height of the umbilicus approximately 9 cm lateral to the umbilicus. Another port of the same size was placed in the same position on the left. The patient placed in Trendelenburg allowing the bowel to spill above the pelvis. There was a single adhesion of what appeared to be omental tissue to the anterior abdominal wall and it was not a problem at this point, it was taken down later. The da Nayana column was advanced on the patient and docked and then operative instruments were placed in right and left lateral ports and I retired to the console. At the console using the vessel sealer on the right and a bipolar fenestrated grasper on the left DICTATION ENDS HERE. Job ID: [id number] DocumentID: [id number] Dictated Date: 03/20/2018 14:35:39 Academic Support Coordinator Date: 03/20/2018 23:21:12 Dictated By: JESUS REGALADO MD
[2018-03-21 00:45] VITALS: BP 121/60
[2018-03-21] MEDS: KETOROLAC 30 MG/ML VIAL IVP SCH ×2 (02:25→08:39)
[2018-03-21] MEDS: oxyCODONE/APAP 5/325MG (PERCOCET 5) TABLET PO PRN (02:37)
[2018-03-21] MEDS: D5 LR IV SOLUTION 1,000 ML IV SCH (02:39)
[2018-03-21 04:45] VITALS: BP 107/55
[2018-03-21 08:00] VITALS: BP 104/66
[2018-03-21] MEDS ORDERED: DOCUSATE SODIUM 100 MG (COLACE) CAP PO SCH (09:00)
[2018-03-21] MEDS ORDERED: IBUPROFEN 800 MG (MOTRIN) TAB PO SCH (15:00)
== END 2018-03-21 09:45 | disposition home or self-care (01) ==
LOC: SDC 12:25 → WS 15:48 → SDC 03-21 09:45
PROVIDERS: ATTEND Obstetrics & Gynecology
DX: N93.8 Other specified abnormal uterine and vaginal bleeding (principal); N80.0 Endometriosis of uterus; N80.3 Endometriosis of pelvic peritoneum; N83.02 Follicular cyst of left ovary; N84.0 Polyp of corpus uteri; F17.210 Nicotine dependence, cigarettes, uncomplicated
CPT/HCPCS: 36415; 84703; 85025; 87081; 94664

== ENCOUNTER → 2020-11-10 | Outpatient (CLI) | payer OTHER ==
[~2020-11-10] MED LIST changes: -BUP/EPI 0.5% 1:200,000 (SENSORCAINE) 30 ML VIAL ONE; +DOCU100C37 PO; +IBUP-1780 PO; +OXYC1TAB11 PO
--- NOTE | 2020-11-10 14:06 | Diagnostic Imaging Report ---
INDICATION: Palpable lump right breast. CORRELATION is made with prior mammogram from 12/23/2017 and 12/15/2012. 2-D and 3-D bilateral diagnostic mammography was performed with CAD. BB marker was placed at the area of palpable abnormality in the upper outer right breast. Both breasts are heterogeneously dense, limiting the sensitivity of mammography. No mass or malignant appearing microcalcifications are seen. Axillae are unremarkable. IMPRESSION: BI-RADS Category 0 No mammographic features suspicious for malignancy are identified. Even so, directed sonographic interrogation of the area of palpable abnormality in the right breast is recommended and will be performed today. ACR BI-RADS Category 0: Incomplete. (Needs additional imaging evaluation). Result letter will be mailed to the patient. Note: At least 10% of breast cancer is not imaged by mammography. Dictated by: Dictated on workstation # [id number]
--- NOTE | 2020-11-10 16:44 | Diagnostic Imaging Report ---
Indication: Lump in the right breast. Correlation is made with diagnostic mammogram earlier same day. Sonographic interrogation of the area of lump right breast was performed. This corresponds to the 10:00 location, 7 cm from the nipple. No sonographic abnormality is detected. No solid or cystic mass is detected. IMPRESSION: BI-RADS Category 1 No sonographic abnormality is detected. Continued close clinical and self breast exams are recommended to confirm stability of the palpable abnormality. Dictated by: Dictated on workstation # [id number]
== END ==
LOC: RAD 12:57
PROVIDERS: ATTEND Obstetrics & Gynecology
DX: N63.10 Unspecified lump in the right breast, unspecified quadrant (principal)
CPT/HCPCS: 76642; 77066; G0279; 77062